=== PATIENT | female | born 1985 | race Caucasian/White ===

== ENCOUNTER 2017-09-16 18:39 | Outpatient (CLI) | payer SELFPAY ==
[2017-09-16 19:07] VITALS: BP 138/75; PULSE 111; RESP 15; TEMP 97.5
--- NOTE | 2017-09-18 20:16 | P.MSEPDOC ---
Presenting Problems - Arrival Data Date of Arrival on Unit: 09/16/17 Time of Arrival on Unit: 18:31 Mode of Transport: Ambulatory - Complaint OB-Reason for Admission/Chief Complaint: Rule Out PROM Comment: Pt complains of possible SROM 2 days ago Medical History - Information : 8 Para: 5 Term: 5 : 1 Abortions: Spontaneous or Elective: 0 Number of Living Children: 5 - Gestational Age Gestational Age by TANNER (wks/days): 37 Weeks and 2 Days Review of Systems - Review of Systems Constitutional: No problems Breast: No problems ENT: No problems Cardiovascular: No problems Respiratory: No problems Gastrointestinal: No problems Genitourinary: No problems Musculoskeletal: No problems Neurological: No problems Skin: No problems Vital Signs - Temperature Temperature: 97.5 F Temperature Source: Temporal Artery Scan - Pulse Pulse Oximetery Pulse Rate: 111 Pulse Assessment Method: Automatic Cuff - Respirations Respiratory Rate: 15 Oxygen Delivery Method: Room Air O2 Sat by Pulse Oximetry: 98 - Blood Pressure Right Arm Blood Pressure: 138/75 Blood Pressure Mean: 96 Blood Pressure Source: Automatic Cuff Medical Screen Scoring (Pre) - Cervical Exam Dilation: 1-3 cm = 1 Membranes: Intact - Uterine Contractions Frequency: N/A Duration: N/A Intensity: N/A - Maternal Vital Signs Maternal Temperature: N/A Maternal Blood Pressure: N/A Signs of Preeclampsia: N/A Maternal Respirations: N/A - Pain Assessment Pain Scale Used: Numeric (1 - 10) Pain Intensity: 0 Pain Management Goal: 0 Pain Description: *Acute Pain Radiation Location: none Pain Frequency: none Pain Duration: 0 Pain Duration Units: Minutes Pain Behavior: None Exhibited Effects of Pain: none Pain Aggravating Factors: None - Maternal Trauma Maternal Trauma: N/A - Assessment Baseline FHR: 125 Heart Rate - NICHD Category: Category I (Normal) = 0 NST: Reactive Position: N/A Station: N/A - Total Score Total Score (Pre): 1 - Level of Risk Level of Risk: Low (0-5) Physician Notification (Pre) - Physician Notified Physician Notified Date: 09/16/17 Physician Notified Time: 19:06 Physician/Practitioner Notifed:: Dr Becerra New Order Received: Yes Disposition - Disposition OB Disposition: Discharge to home Discharge Date: 09/16/17 Discharge Time: 19:10 I agree with the RN Medical Screening Exam: Yes Risk & Benefit of care provided described in d/c instruction: Yes Diagnosis: FALSE LABOR BEFORE 37 COMPLETED WEEKS OF GEST, THIRD TRI
== END 2017-09-16 19:10 | disposition home or self-care (01) ==
LOC: MERGE 18:39 → FBPOP 18:39
PROVIDERS: ATTEND Obstetrics & Gynecology
DX: O47.1 False labor at or after 37 completed weeks of gestation (principal); Z3A.37 37 weeks gestation of pregnancy
CPT/HCPCS: 59025; 84112; 99213

== ENCOUNTER 2017-09-17 21:40 | Inpatient (IN) | payer OTHER ==
[2017-09-17 22:50] LABS: Basophils % (A) 0 %; Eosinophils # (A) 0.1 k/uL (0-0.7); Eosinophils % (A) 1 %; HCT 34.5 % (34.0-46.0); HGB 11.5 gm/dL (11.4-16.0); Lymphocytes # (A) 1.6 k/uL (1.0-4.8); Lymphocytes % (A) 14 %; MCH 29.2 pg (25.0-35.0); MCHC 33.3 g/dL (31.0-37.0); MCV 87.6 fL (80.0-100.0); Mean Platelet Volume 7.5; Monocytes # (A) 0.6 k/uL (0-1.0); Monocytes % (A) 5 %; Neutrophils # (A) 9.4 k/uL (1.3-7.7); Neutrophils % (A) 79 %; Platelet Count 249 k/uL (150-450); Poikilocytosis Slight; RBC 3.94 m/uL (3.80-5.40); RDW 15.5 % (11.5-15.5)
[2017-09-17 22:51] LABS: ALT 21 U/L (9-52); AST 19 U/L (14-36); Blood Urea Nitrogen 6 mg/dL (7-17); LDH 490 U/L (313-618); Uric Acid 3.3 mg/dL (3.7-7.4)
[2017-09-17] MEDS ORDERED: LIDOCAINE 1% (PF) 10 MG/ML (30 ML SDV) SQ PRN (22:54)
[2017-09-17] MEDS ORDERED: OXYTOCIN 10 UNIT/ML 1 ML VIAL IM PRN (22:54)
[2017-09-17] MEDS ORDERED: METHYLERGONOVINE 0.2 MG/ML 1 ML AMP IM PRN (22:54)
[2017-09-17] MEDS ORDERED: TERBUTALINE 1 MG/ML VIAL SQ PRN (22:54)
[2017-09-17] MEDS ORDERED: CARBOPROST TROMETHAMINE 250 MCG/ML 1 ML AMP IM PRN (22:54)
[2017-09-17] MEDS ORDERED: LACTATED RINGERS 1,000 ML IV SCH (23:00)
[2017-09-17] MEDS ORDERED: OXYTOCIN 20 UNITS/1000 ML NS 1,000 ML IV SCH (23:00)
[2017-09-17 23:03] LABS: Appearance,Urine Turbid (Clear); Bacteria,Urine Moderate /hpf; Bilirubin,Urine Negative (Negative); Blood,Urine Large (Negative); Color,Urine Yellow; Glucose,Urine (UA) Negative (Negative); Ketones,Urine Negative (Negative); Leukocyte Esterase,Urine Large (Negative); Nitrite,Urine Negative (Negative); PH, Urine 6.5 (5.0-8.0); Protein,Urine 1+ (Negative); RBC,Urine 25 /hpf (0-5); Specific Gravity,Urine 1.009 (1.001-1.035); Squamous Epithelial Cell,Urine 37 /hpf (0-4); Urobilinogen,Urine <2.0 mg/dL (<2.0); WBC,Urine >182 /hpf (0-5)
[2017-09-17] MEDS ORDERED: CLINDAMYCIN 900 MG in DEXTROSE 5% IN WATER 50 ML IVPB STA ×2 (23:16)
[2017-09-17] MEDS ORDERED: IBUPROFEN 600 MG TAB PO PRN (23:17)
[2017-09-17 23:20] VITALS: BMI 26.8
[2017-09-17 23:27] LABS: INR 0.9 (<1.2); Prothrombin Time 9.4 sec (9.0-12.0)
--- NOTE | 2017-09-18 | P.HPOB ---
History of Present Illness H&P Date: 09/17/17 Chief Complaint: Contractions This is a 32-year-old female 8 para 5 at 37-2/7 weeks, with an estimated date of confinement of 10/05/2017, who presented to labor and delivery with complaints of contractions that became stronger after her appointment in the office today. In addition she complained of a headache that she has had for last 2 hours. She has not taken anything for it. She did state that off and on she has taken either Tylenol or Motrin for pain during the . She most recently took Motrin she thinks yesterday. She states she has probably used it a couple times a month. care has been with Dr. Black and has been uncomplicated per patient. labs: Obstetrical ultrasound-within normal limits Hepatitis B surface antigen-negative RPR-nonreactive Rubella-immune Blood type-O+ Antibody screen-negative HIV-nonreactive Hemoglobin-11.7 Random glucose-76 One hour Glucola-107 Group B streptococcus is pending however she does have a history of positive in previous pregnancies. Obstetrical history: . History of 5 vaginal deliveries. 4 of the deliveries were at term and one delivery at 35 weeks. She has had 1 miscarriage and 1 termination of . Gynecologic history: Denies any history of sexual transmitted diseases. Review of Systems Constitutional: Denies chills, Denies fever Eyes: denies blurred vision, denies pain Ears, nose, mouth and throat: Reports headache Cardiovascular: Denies chest pain, Denies shortness of breath Respiratory: Denies cough Gastrointestinal: Reports abdominal pain (Contractions) Genitourinary: Reports pelvic pain, Reports Musculoskeletal: Reports low back pain Integumentary: Denies pruritus, Denies rash Neurological: Denies numbness, Denies weakness Psychiatric: Reports depression, Reports difficulty concentrating Past Medical History Past Medical History: No Reported History History of Any Multi-Drug Resistant Organisms: None Reported Additional Past Surgical History / Comment(s): Dilation and curretage. Laser surgery for Kidney Stones at age 11 Past Anesthesia/Blood Transfusion Reactions: No Reported Reaction Past Psychological History: Anxiety, Depression Smoking Status: Current every day smoker Past Alcohol Use History: None Reported Past Drug Use History: None Reported - Past Family History Mother Family Medical History: No Reported History Medications and Allergies Home Medications Medication Instructions Recorded Confirmed Type Dextroamphetamine/Amphetamine 10 mg PO DAILY 10/21/15 09/17/17 History [Adderall Xr] RX: Acetaminophen-Codeine 300-30mg 1 - 2 each PO Q4HR PRN #30 tab 10/22/1509/17 Rx [Tylenol w/codeine #3] RX: Ibuprofen [Motrin] 600 mg PO Q6HR PRN #40 tab 10/22/15 09/17/17 Rx Hydrocodone/Acetaminophen [[place] 1 each PO Q6HR PRN #20 tab 10/30/15 09/17/17 Rx 5-325] Allergies Allergy/AdvReac Type Severity Reaction Status Date / Time Penicillins Allergy Intermediate Rash/Hives Verified 09/17/17 21:49 penicillin G Allergy Unknown Verified 09/17/17 21:49 Exam Osteopathic Statement: *. No significant issues noted on an osteopathic structural exam other than those noted in the History and Physical/Consult. - Vital Signs Vital signs: Vital Signs Temp Pulse Resp BP Pulse Ox 09/17/17 23:07 96.3 F L 91 16 152/79 98 09/17/17 22:13 96.3 F L 91 16 152/79 Intake and Output 09/17/17 09/17/17 09/18/17 14:59 22:59 06:59 Other: Weight 75.296 kg 75.296 kg HEENT: Within normal limits Heart: Regular rate and rhythm Lungs: Clear to auscultation bilaterally Abdomen: Cervix: 8 and half to 9 cm/90-100%/-1 station with bulging bag. Artificial rupture of membranes is carried out with clear fluid noted. heart tones: Reactive Contractions: Every 1-2 minutes Extremities: Negative Homans Results Result Diagrams: 09/17/17 22:30 09/17/17 22:30 Abnormal Lab Results - Last 24 Hours (Table) 09/17/17 09/17/17 09/17/17 Range/Units 22:30 22:30 22:30 WBC 12.0 H (3.8-10.6) k/uL Neutrophils # 9.4 H (1.3-7.7) k/uL BUN 6 L (7-17) mg/dL Creatinine 0.50 L (0.52-1.04) mg/dL Uric Acid 3.3 L (3.7-7.4) mg/dL Urine Appearance Turbid H (Clear) Urine Protein 1+ H (Negative) Urine Blood Large H (Negative) Ur Leukocyte Esterase Large H (Negative) Urine RBC 25 H (0-5) /hpf Urine WBC >182 H (0-5) /hpf Urine WBC Clumps Many H (None) /hpf Ur Squamous Epith Cells 37 H (0-4) /hpf Urine Bacteria Moderate H (None) /hpf Assessment and Plan (1) 37 weeks gestation of Current Visit: Yes Status: Acute Code(s): Z3A.37 - 37 WEEKS GESTATION OF SNOMED Code(s): 81209470 Plan: Patient is admitted for active labor. She initially had some elevated blood pressures on arrival to triage and preeclampsia labs were ordered. All labs were negative other than positive protein in her urine however she also had a lot of contamination in her urine. Expectant management.
--- NOTE | 2017-09-18 00:02 | P.PROBDLV ---
Vaginal Delivery Note - . Vaginal Delivery Note: The patient progressed to complete dilation after artificial rupture of membranes with clear fluid noted. She pushed for a short while. Infant's head came to a crown and then delivered across the perineum in a left occiput anterior lie followed by the anterior shoulder. Nose and mouth were bulb suctioned at the perineum. With one further push, the remainder the easily delivered and was placed on mother's abdomen. Brisk cry was noted immediately. Cord was clamped and cut and was taken to warmer for evaluation. A viable female infant was noted with scores of 9 at 1 minute and 9 at 5 minutes and infant weight of 7 lbs. 3 oz. Placenta delivered shortly thereafter, intact, with a three-vessel cord. Uterus contracted fairly well after oxytocin was given and uterine massage was carried out. Inspection the perineum revealed no perineal lacerations. Estimated blood loss is approximately 100 mL's. Both mother and infant are in stable condition. Infant delivery time was 2339.
--- NOTE | 2017-09-18 00:03 | P.MSEPDOC ---
Presenting Problems - Arrival Data Date of Arrival on Unit: 09/17/17 Time of Arrival on Unit: 21:40 Mode of Transport: Ambulatory - Complaint OB-Reason for Admission/Chief Complaint: Possible Onset of Labor Medical History - Information : 8 Para: 5 Term: 5 : 0 Abortions: Spontaneous or Elective: 2 Number of Living Children: 5 - Gestational Age Gestational Age by TANNER (wks/days): 37 Weeks and 3 Days - History Complications: Smoker Review of Systems - Review of Systems Constitutional: No problems Breast: No problems ENT: No problems Cardiovascular: No problems Respiratory: No problems Gastrointestinal: No problems Genitourinary: No problems Musculoskeletal: No problems Neurological: No problems Skin: No problems Vital Signs - Temperature Temperature: 97.6 F Temperature Source: Temporal Artery Scan - Pulse Right Brachial Pulse Rate: 105 Pulse Assessment Method: Automatic Cuff - Respirations Respiratory Rate: 16 Oxygen Delivery Method: Room Air - Blood Pressure Right Arm Blood Pressure: 115/62 Blood Pressure Mean: 79 Blood Pressure Source: Automatic Cuff Medical Screen Scoring (Pre) - Cervical Exam Dilation: 4-7 cm = 2 Effacement: Exam Deferred Membranes: Intact - Uterine Contractions Frequency: > or = 36 weeks =2 Duration: N/A Intensity: N/A - Maternal Vital Signs Maternal Temperature: N/A Maternal Blood Pressure: N/A Signs of Preeclampsia: N/A Maternal Respirations: N/A - Pain Assessment Pain Scale Used: Numeric (1 - 10) Pain Intensity: 7 Pain Description: Cramping Pain Frequency: Intermittent Pain Duration: 1 Pain Duration Units: Minutes Pain Behavior: Facial Grimacing Pain Aggravating Factors: Contractions - Maternal Trauma Maternal Trauma: N/A - Assessment Baseline FHR: 140 Heart Rate - NICHD Category: Category I (Normal) = 0 NST: Reactive Position: N/A Station: N/A - Total Score Total Score (Pre): 4 - Level of Risk Level of Risk: Low (0-5) Physician Notification (Pre) - Physician Notified Physician Notified Date: 09/17/17 Physician Notified Time: 22:13 Physician/Practitioner Notifed:: Dr. Patel Spoke With: Dr. Patel New Order Received: Yes - Notification Comment Comment: Orders recieved to recheck pt after one hour and collect PIH labs and U /A. To call with results Physician Notification (Post) - Physician Notified Physician Notified Date: 09/17/17 Physician Notified Time: 22:58 Physician/Practitioner Notified:: Dr. Patel Spoke With: Dr. Patel - Notification Comment Comment: Dr. Patel notified of pt vag exam. Orders recieved to admit pt Disposition - Disposition OB Disposition: Admit I agree with the RN Medical Screening Exam: Yes Risk & Benefit of care provided described in d/c instruction: Yes Diagnosis: ENCOUNTER FOR FULL-TERM UNCOMPLICATED DELIVERY
[2017-09-18] MEDS ORDERED: diphenhydrAMINE 25 MG CAP PO PRN (01:11)
[2017-09-18] MEDS ORDERED: OXYTOCIN 20 UNITS/1000 ML NS 1,000 ML IV SCH (01:11)
[2017-09-18] MEDS ORDERED: diphenhydrAMINE 50 MG/ML 1 ML VIAL IVP PRN ×2 (01:11)
[2017-09-18] MEDS ORDERED: diphenhydrAMINE 50 MG CAP PO PRN (01:11)
[2017-09-18] MEDS ORDERED: LANOLIN CREAM 5 GM TUBE TOPICAL PRN (01:11)
[2017-09-18] MEDS ORDERED: BENZOCAINE/MENTHOL SPRAY 1 GM/SPRAY AEROSOL TOPICAL PRN (01:11)
[2017-09-18] MEDS ORDERED: HYDROCORTISONE 2.5% RECTAL CREAM 30 GM TUBE RECTAL PRN (01:11)
[2017-09-18] MEDS ORDERED: ZOLPIDEM 5 MG TAB PO PRN (01:11)
[2017-09-18] MEDS ORDERED: ACETAMINOPHEN TAB 325 MG TAB PO PRN (01:11)
[2017-09-18] MEDS ORDERED: WITCH HAZEL 1 EACH MED..PAD TOPICAL PRN (01:11)
[2017-09-18] MEDS ORDERED: SIMETHICONE 80 MG CHEWABLE PO PRN (01:11)
[2017-09-18] MEDS ORDERED: CLINDAMYCIN 900 MG in DEXTROSE 5% IN WATER 50 ML IVPB SCH ×2 (07:16)
[2017-09-18] MEDS: IBUPROFEN 600 MG TAB PO PRN ×2 (08:33→15:46)
--- NOTE | 2017-09-18 09:10 | P.PNOBGVD ---
Subjective - Subjective Principal diagnosis: day 1 Interval history: Doing very well voices no complaints. Patient reports: Reports appetite normal, Reports voiding normally, Reports pain well controlled, Reports ambulating normally [place]: in NICU Objective - Latest Vital Signs Latest vital signs: Vital Signs Temp Pulse Resp BP Pulse Ox 09/18/17 04:06 98.3 F 82 16 128/80 09/18/17 01:50 88 16 125/62 09/18/17 01:20 83 16 120/63 09/18/17 00:50 85 16 136/84 09/18/17 00:35 86 16 130/79 09/18/17 00:20 88 16 119/74 09/18/17 00:05 120 H 16 119/64 09/18/17 00:03 97.6 F 105 H 16 115/62 09/17/17 23:50 97.6 F 105 H 16 115/62 09/17/17 23:07 96.3 F L 91 16 152/79 98 09/17/17 22:13 96.3 F L 91 16 152/79 Intake and Output 09/17/17 09/18/17 09/18/17 22:59 06:59 14:59 Output Total 1 Balance -1 Output: Urine 1 Other: # Voids 1 Weight 75.296 kg 75.296 kg - Exam Lungs: bilateral: normal Chest: Normal S1, Normal S2 Extremities: Present: normal Abdomen: Present: normal appearance, soft Uterus: Present: normal, firm - Labs Labs: Abnormal Lab Results - Last 24 Hours (Table) 09/17/17 09/17/17 09/17/17 Range/Units 22:30 22:30 22:30 WBC 12.0 H (3.8-10.6) k/uL Neutrophils # 9.4 H (1.3-7.7) k/uL BUN 6 L (7-17) mg/dL Creatinine 0.50 L (0.52-1.04) mg/dL Uric Acid 3.3 L (3.7-7.4) mg/dL Urine Appearance Turbid H (Clear) Urine Protein 1+ H (Negative) Urine Blood Large H (Negative) Ur Leukocyte Esterase Large H (Negative) Urine RBC 25 H (0-5) /hpf Urine WBC >182 H (0-5) /hpf Urine WBC Clumps Many H (None) /hpf Ur Squamous Epith Cells 37 H (0-4) /hpf Urine Bacteria Moderate H (None) /hpf
[2017-09-18] MEDS: SENNOSIDES-DOCUSATE SODIUM 1 EACH TAB PO SCH ×2 (15:47→20:09)
[2017-09-19 08:06] LABS: Basophils % (A) 1 %; Eosinophils # (A) 0.1 k/uL (0-0.7); Eosinophils % (A) 2 %; HCT 31.9 % (34.0-46.0); HGB 10.8 gm/dL (11.4-16.0); Lymphocytes # (A) 2.1 k/uL (1.0-4.8); Lymphocytes % (A) 24 %; MCV 88.3 fL (80.0-100.0); Mean Platelet Volume 7.5; Monocytes # (A) 0.5 k/uL (0-1.0); Monocytes % (A) 6 %; Neutrophils # (A) 5.8 k/uL (1.3-7.7); Neutrophils % (A) 67 %; Platelet Count 228 k/uL (150-450); Poikilocytosis Slight; RBC 3.61 m/uL (3.80-5.40); RDW 15.5 % (11.5-15.5); WBC 8.7 k/uL (3.8-10.6)
--- NOTE | 2017-09-19 08:45 | P.PNOBGVD ---
Subjective - Subjective Principal diagnosis: day 2 Interval history: Overall she is doing very well. She voices no complaints. Patient reports: Reports appetite normal, Reports voiding normally, Reports pain well controlled, Reports ambulating normally : in NICU Objective - Latest Vital Signs Latest vital signs: Vital Signs Temp Pulse Resp BP Pulse Ox 09/19/17 00:00 98.1 F 83 16 132/78 09/18/17 16:00 98.4 F 69 18 111/69 98 - Exam Lungs: bilateral: normal Chest: Normal S1, Normal S2 Extremities: Present: normal Abdomen: Present: normal appearance, soft Uterus: Present: normal, firm - Labs Labs: Abnormal Lab Results - Last 24 Hours (Table) 09/19/17 Range/Units 07:27 RBC 3.61 L (3.80-5.40) m/uL Hgb 10.8 L (11.4-16.0) gm/dL Hct 31.9 L (34.0-46.0) %
[2017-09-19] MEDS: IBUPROFEN 600 MG TAB PO PRN ×2 (08:46→19:14)
[2017-09-19] MEDS: SENNOSIDES-DOCUSATE SODIUM 1 EACH TAB PO SCH ×2 (15:33→19:36)
[2017-09-20 00:06] VITALS: PULSE 77; RESP 16
[2017-09-20] MEDS: IBUPROFEN 600 MG TAB PO PRN (07:55)
[2017-09-20] MEDS: SENNOSIDES-DOCUSATE SODIUM 1 EACH TAB PO SCH (07:56)
[2017-09-20 07:59] VITALS: BP 139/81; TEMP 98.3
--- NOTE | 2017-09-20 08:46 | P.DS ---
Providers Date of admission: 09/17/17 23:05 Expected date of discharge: 09/20/17 Attending physician: Jasvir Black Primary care physician: Jasvir Black Hospital Course: Randee is doing very well day 3. She is involuting, voiding and tolerating her diet. She voices no complaints and is stable for discharge this time. Prescription for Motrin has been provided she will follow up with me in 6 weeks. Discharge instructions were thoroughly reviewed and all questions are answered for her at this time. Physical exam reveals no abnormalities heart regular lungs clear abdomen abdomen is soft and nontender. Uterus is firm below the umbilicus. Lochia is reported to be light. Assessment day 3. Plan discharged home follow up with me in 6 weeks Patient Condition at Discharge: Good Plan - Discharge Summary New Discharge Prescriptions: New Ibuprofen [Motrin] 600 mg PO Q6HR PRN #30 tab PRN Reason: Pain No Action Dextroamphetamine/Amphetamine [Adderall Xr] 10 mg PO DAILY Acetaminophen-Codeine 300-30mg [Tylenol w/codeine #3] 1 - 2 each PO Q4HR PRN #30 tab PRN Reason: Mild Pain Ibuprofen [Motrin] 600 mg PO Q6HR PRN #40 tab PRN Reason: Mild Pain Or Fever >= 100.5 Hydrocodone/Acetaminophen [Sims 5-325] 1 each PO Q6HR PRN #20 tab PRN Reason: Pain Discharge Medication List Dextroamphetamine/Amphetamine [Adderall Xr] 10 mg PO DAILY 10/21/15 [History] Acetaminophen-Codeine 300-30mg [Tylenol w/codeine #3] 1 - 2 each PO Q4HR PRN # 30 tab 10/22/15 [Rx] Ibuprofen [Motrin] 600 mg PO Q6HR PRN #40 tab 10/22/15 [Rx] Hydrocodone/Acetaminophen [Sims 5-325] 1 each PO Q6HR PRN #20 tab 10/30/15 [Rx] Ibuprofen [Motrin] 600 mg PO Q6HR PRN #30 tab 09/19/17 [Rx] Follow up Appointment(s)/Referral(s): Jasvir Black DO [Primary Care Provider] - 6 Weeks Activity/Diet/Wound Care/Special Instructions: Ting, limit stairs and driving, and pelvic rest. If any high temperatures, heavy bleeding, or severe pain call my office Discharge Disposition: HOME SELF-CARE
== END 2017-09-20 12:30 | disposition home or self-care (01) | DRG 775 ==
LOC: FBPOP 21:40 → 4FBP 23:05
PROVIDERS: ADMIT Obstetrics & Gynecology; ATTEND Obstetrics & Gynecology
PROC: 10E0XZZ Delivery of Products of Conception, External Approach (ICD-10-PCS; principal; 2017-09-17)
PROC: 10907ZC Drainage of Amniotic Fluid, Therapeutic from Products of Conception, Via Natural or Artificial Opening (ICD-10-PCS; principal; 2017-09-17)
DX: O99.334 Smoking (tobacco) complicating childbirth (principal); Z37.0 Single live birth; Z3A.37 37 weeks gestation of pregnancy; F17.200 Nicotine dependence, unspecified, uncomplicated; Z88.0 Allergy status to penicillin; O99.344 Other mental disorders complicating childbirth; F32.9 Major depressive disorder, single episode, unspecified; F41.9 Anxiety disorder, unspecified; Z87.442 Personal history of urinary calculi; Z79.891 Long term (current) use of opiate analgesic
CPT/HCPCS: 59025; 81001; 82565; 83615; 84450; 84460; 84520; 84550; 85025; 85384; 85610; 85730; 88307; 99213

== ENCOUNTER 2019-11-04 16:39 | Inpatient (IN) | payer OTHER ==
[2019-11-04] MEDS ORDERED: MAGNESIUM SULFATE-WATER PMX 4 GM in WATER FOR INJECTION 1 100ML.BAG IVPB ONE (17:18)
[2019-11-04] MEDS ORDERED: hydrALAZINE HCL 20 MG/ML 1 ML VIAL IVP PRN (17:18)
[2019-11-04] MEDS ORDERED: LABETALOL 5 MG/ML VIAL MDV IVP PRN ×3 (17:18)
[2019-11-04] MEDS ORDERED: CALCIUM GLUCONATE 1 GM/10 ML VIAL IV PRN (17:18)
[2019-11-04] MEDS ORDERED: OXYTOCIN 10 UNIT/ML 1 ML VIAL IM PRN (17:20)
[2019-11-04] MEDS ORDERED: LIDOCAINE 0.5% (PF) 5 MG/ML (50 ML SDV) SQ PRN (17:20)
[2019-11-04] MEDS ORDERED: TERBUTALINE 1 MG/ML VIAL SQ PRN (17:20)
[2019-11-04] MEDS ORDERED: CARBOPROST TROMETHAMINE 250 MCG/ML 1 ML AMP IM PRN (17:20)
[2019-11-04] MEDS ORDERED: METHYLERGONOVINE 0.2 MG/ML 1 ML AMP IM PRN (17:20)
--- NOTE | 2019-11-04 17:28 | P.HPOB ---
History of Present Illness H&P Date: 11/04/19 Chief Complaint: Intrauterine at 36 weeks 6 days with preeclampsia Randee is a 34-year-old at 36 6 weeks gestation who was seen in the office this afternoon and was sent over for nonstress test and further monitoring. In the office she complained of swelling in her feet which was 2+ she also relates that last couple days she felt like her hands are swollen and her mom had thought that her lips were swollen but did not appear to be swollen today. 10 reflexes were 1+. In the office she denied headache or other symptoms but once she gets labor and delivery she relates that she's had significant headaches on and off for approximately 1 week with epigastric pain which she didn't understand what I meant in the office when asked her about. Her blood pressures in the office was 120s over 60s and upon arriving in labor and delivery immediately her blood pressure was noted to be 170/98 and then 180s over 105's. We are giving her blood pressure medications to try and get that under control and will start mag sulfate for suspected preeclampsia. She does have 1+ protein in her urine dip in the office and preeclamptic labs are ordered. She currently is dilated to approximately 2-3 cm and 60-70% effaced. We'll try and get her in labor and deliver vaginally if at all possible since she has 6 prior vaginal deliveries. It is noted that she is technically , but she does have what appears to be severe preeclampsia based on blood pressure as well as severe features with headache and possible epigastric pain. She relates that her epigastric pain wasn't worrying to her as she relates it was at with all of her other pregnancies difficult for me to say for certainty without liver enzymes whether or not this is true epigastric pain. Her course up until today had been generally unremarkable there was a significant gap in her care from 13 weeks to 28 weeks but I see her much more regularly since that time. She did not do her Glucola screen. She has been having some irregular contractions at home. Initially heart tones were in the 200s, but have come down with her just resting and showed category 1 tracing with a baseline heart rate in the 160s. She has no significant history otherwise preeclampsia but with advanced maternal age this does put her at some increased risk. All laboratories are pending it is possible that she will not show any labs consistent with preeclampsia I am still planning on delivering her without significant for blood pressure range. If we can get her blood pressure under control plan vaginal delivery she is aware that if things were to progress or change she may need a section. Pertinent labs with the Precis did include O+ blood type Rh antibody was negative, rubella was immune, RPR and hepatitis she surface antigen were both negative. All questions are answered for her at this time. She is aware of the gravity in severity potential the current diagnosis. She is aware of potential risk for seizures. Past Medical History Past Medical History: No Reported History Additional Past Medical History / Comment(s): times 3 (term); SAB times 1; EAB times one. Patient states she takes Tramdol for back pain. History of Any Multi-Drug Resistant Organisms: None Reported Additional Past Surgical History / Comment(s): Dilation and curretage. Laser surgery for Kidney Stones at age 11 Past Anesthesia/Blood Transfusion Reactions: No Reported Reaction Smoking Status: Current some day smoker - Past Family History Mother Family Medical History: No Reported History Medications and Allergies Home Medications Medication Instructions Recorded Confirmed Type No Known Home Medications 11/13/17 11/13/17 History Allergies Allergy/AdvReac Type Severity Reaction Status Date / Time Penicillins Allergy Intermediate Rash/Hives Verified 11/04/19 17:03 penicillin G Allergy Unknown Verified 11/04/19 17:03 sulfamethoxazole Allergy Rash/Hives Verified 11/04/19 17:03 [From Bactrim] trimethoprim [From Bactrim] Allergy Rash/Hives Verified 11/04/19 17:03 Exam Osteopathic Statement: *. No significant issues noted on an osteopathic structural exam other than those noted in the History and Physical/Consult. Intake and Output 11/04/19 11/04/19 11/04/19 06:59 14:59 22:59 Other: Weight 84.368 kg - OBG Physical Exam Breast: both: normal (no masses) Abdomen: bowel sounds normal, no diffuse tenderness, no bruit present, no guarding noted, no hepatomegaly, no splenomegaly, no mass Vulva: both: normal Vagina: normal moisture, no discharge Cervix: no lesion, no discharge Uterus: normal size, normal contour Adnexa: both: normal Anus/Rectum: normal perianal skin, no rectal mass, no hemorrhoids, heme negative
[2019-11-04 17:29] LABS: Appearance,Urine Clear (Clear); Bilirubin,Urine Negative (Negative); Blood,Urine Negative (Negative); Calcium Oxalate Crystals,Urine Many /hpf; Color,Urine Yellow; Glucose,Urine (UA) Negative (Negative); Hyaline Casts,Urine 4 /lpf (0-2); Ketones,Urine Negative (Negative); Leukocyte Esterase,Urine Negative (Negative); Mucus,Urine Few /hpf; Nitrite,Urine Negative (Negative); Protein,Urine 2+ (Negative); RBC,Urine 2 /hpf (0-5); Specific Gravity,Urine 1.019 (1.001-1.035); Squamous Epithelial Cell,Urine 1 /hpf (0-4); Urobilinogen,Urine <2.0 mg/dL (<2.0); WBC,Urine 4 /hpf (0-5)
[2019-11-04] MEDS: LACTATED RINGERS 1,000 ML IV SCH ×2 (17:38→19:29)
[2019-11-04 17:45] LABS: Basophils % (A) 0 %; Eosinophils # (A) 0.2 k/uL (0-0.7); Eosinophils % (A) 2 %; HCT 34.9 % (34.0-46.0); HGB 11.3 gm/dL (11.4-16.0); Lymphocytes # (A) 1.3 k/uL (1.0-4.8); Lymphocytes % (A) 14 %; MCH 28.8 pg (25.0-35.0); MCHC 32.2 g/dL (31.0-37.0); MCV 89.6 fL (80.0-100.0); Mean Platelet Volume 9.1; Monocytes # (A) 0.6 k/uL (0-1.0); Monocytes % (A) 6 %; Neutrophils # (A) 7.2 k/uL (1.3-7.7); Neutrophils % (A) 76 %; Platelet Count 216 k/uL (150-450); Poikilocytosis Slight; RDW 14.8 % (11.5-15.5); WBC 9.5 k/uL (3.8-10.6)
[2019-11-04 17:51] LABS: ALT 8 U/L (4-34); AST 20 U/L (14-36); African American GFR (CKD) >90 (>60 ml/min/1.73 sqM); Blood Urea Nitrogen 9 mg/dL (7-17); LDH 480 U/L (313-618); Magnesium 1.7 mg/dL (1.6-2.3); Non-African American GFR(CKD) >90 (>60 ml/min/1.73 sqM); Uric Acid 4.9 mg/dL (3.7-7.4)
[2019-11-04 17:55] LABS: INR 0.9 (<1.2); Partial Thromboplastin Time 22.7 sec (22.0-30.0); Prothrombin Time 9.3 sec (9.0-12.0)
[2019-11-04 17:57] LABS: Protein/Creatinine Ratio,Urine 1.2
[2019-11-04] MEDS ORDERED: CLINDAMYCIN 600 MG in DEXTROSE 5% IN WATER 50 ML IVPB SCH ×2 (18:00)
[2019-11-04] MEDS: MAGNESIUM SULFATE-WATER PMX 20 GM in WATER FOR INJECTION 1 500ML.BAG IV SCH (18:05)
[2019-11-04] MEDS ORDERED: SODIUM CHLORIDE 0.9% 100 ML BAG ONE (18:52)
[2019-11-04] MEDS ORDERED: ROPIVACAINE 5MG/ML 20ML VIAL ONE (18:52)
[2019-11-04] MEDS ORDERED: fentaNYL (PF) 50 MCG/ML 5 ML AMP ONE (18:52)
[2019-11-04] MEDS: OXYTOCIN 30 UNITS/500 ML NS 30 UNIT in SALINE 1 500ML.BAG IV SCH (19:50)
[2019-11-04] MEDS ORDERED: WITCH HAZEL 1 EACH MED..PAD TOPICAL PRN (21:47)
[2019-11-04] MEDS ORDERED: BENZOCAINE/MENTHOL SPRAY 1 GM/SPRAY AEROSOL TOPICAL PRN (21:47)
[2019-11-04] MEDS ORDERED: diphenhydrAMINE 25 MG CAP PO PRN (21:47)
[2019-11-04] MEDS ORDERED: LANOLIN CREAM 5 GM TUBE TOPICAL PRN (21:47)
[2019-11-04] MEDS ORDERED: ZOLPIDEM 5 MG TAB PO PRN (21:47)
[2019-11-04] MEDS ORDERED: SIMETHICONE 80 MG CHEWABLE PO PRN (21:47)
[2019-11-04] MEDS ORDERED: HYDROCORTISONE 2.5% RECTAL CREAM 30 GM TUBE RECTAL PRN (21:47)
[2019-11-04] MEDS ORDERED: diphenhydrAMINE 50 MG CAP PO PRN (21:47)
[2019-11-04] MEDS ORDERED: diphenhydrAMINE 50 MG/ML 1 ML VIAL IVP PRN ×2 (21:47)
--- NOTE | 2019-11-04 21:49 | P.PROBDLV ---
Vaginal Delivery Note - . Vaginal Delivery Note: Randee progressed complete and pushed with spontaneous vaginal delivery of a viable male over an intact perineum. Baby was delivered from straight occiput posterior position. Once baby's head was delivered nuchal cord 1 was easily reduced and using lateral traction baby's shoulder easily delivered. Once baby was delivered mouth nares were bulb suctioned and baby was placed mother's abdomen where the umbilical cord was allowed to pulsate for 45 seconds prior to clamping and cutting. Once this completed nursery personnel was present and assumed care. Placenta was then delivered intact Pitocin was added to the IV. scores were 8 and 9 at one and 5 minutes respectively. Weight is pending but both mother and baby currently appear stable following delivery. We'll plan to continue mag sulfate for 24 hours and add oral labetalol with IV labetalol only as needed for urgent hypertensive crisis
[2019-11-04] MEDS ORDERED: OXYTOCIN 20 UNITS/1000 ML NS 1,000 ML IV SCH (22:00)
[2019-11-04] MEDS: IBUPROFEN 600 MG TAB PO PRN (22:32)
[2019-11-04] MEDS: LABETALOL 200 MG TAB PO SCH (22:33)
[2019-11-05 00:30] LABS: Urine Alcohol Negative (Negative); Urine Barbiturate Negative (Negative); Urine Cocaine Negative (Negative); Urine Methadone Negative (Negative); Urine Opiates Negative (Negative); Urine Phencyclidine Negative (Negative)
[2019-11-05] MEDS: MAGNESIUM SULFATE-WATER PMX 20 GM in WATER FOR INJECTION 1 500ML.BAG IV SCH ×2 (03:44→15:59)
[2019-11-05] MEDS: ACETAMINOPHEN TAB 325 MG TAB PO PRN (03:47)
[2019-11-05 06:04] LABS: Basophils % (A) 0 %; Eosinophils # (A) 0.1 k/uL (0-0.7); Eosinophils % (A) 1 %; HCT 30.2 % (34.0-46.0); HGB 10.3 gm/dL (11.4-16.0); Lymphocytes # (A) 1.4 k/uL (1.0-4.8); Lymphocytes % (A) 12 %; MCH 30.7 pg (25.0-35.0); MCV 90.5 fL (80.0-100.0); Mean Platelet Volume 8.9; Monocytes # (A) 0.5 k/uL (0-1.0); Monocytes % (A) 5 %; Neutrophils # (A) 9.5 k/uL (1.3-7.7); Neutrophils % (A) 81 %; Platelet Count 198 k/uL (150-450); RBC 3.34 m/uL (3.80-5.40); RDW 14.9 % (11.5-15.5); WBC 11.7 k/uL (3.8-10.6)
[2019-11-05] MEDS: LABETALOL 200 MG TAB PO SCH ×2 (08:47→20:36)
[2019-11-05] MEDS: IBUPROFEN 600 MG TAB PO PRN ×2 (08:51→20:38)
--- NOTE | 2019-11-05 15:18 | PN ---
PROGRESS NOTE PRINCIPAL DIAGNOSIS: day 1 with preeclampsia. Randee was seen and evaluated this morning post day 1. Overall, she is doing well. She is diuresing well. Her 2+ pitting edema in her lower extremities is basically gone now. She does have maybe a slight trace of peripheral edema. Her hands and face look less swollen as well. She has been on Mag sulfate 2 g an hour since last night. She is feeling a little lightheaded and fuzzy. As she seems to be improving, will decrease that to 1 g an hour and decrease her IV rate to 25 mL an hour so that she can start drinking some fluids judiciously. Will also try and allow her to have some diet this morning. Her blood pressure this morning is 150/100. She did receive a dose of labetalol. She is on labetalol twice daily and I will speak with Dr. Becerra who is on-call today and if adjustments need to be made, they can be made. But she denies headache, no epigastric pain or other signs or symptoms of preeclampsia at this time. Otherwise, her heart is regular, lungs are clear, extremities without pain. Abdomen is soft, uterus is firm and lochia is reported to be light. We will make these small changes and try and decrease her Mag sulfate and discontinue it at 24 hours. MMODL / IJN: [id number] /
[2019-11-05] MEDS: LACTATED RINGERS 1,000 ML IV SCH (16:01)
[2019-11-05] MEDS: SENNOSIDES-DOCUSATE SODIUM 1 EACH TAB PO SCH (20:35)
[2019-11-06] MEDS: SENNOSIDES-DOCUSATE SODIUM 1 EACH TAB PO SCH ×3 (00:22→21:47)
[2019-11-06] MEDS: IBUPROFEN 600 MG TAB PO PRN ×3 (04:58→20:50)
[2019-11-06] MEDS: LABETALOL 200 MG TAB PO SCH (09:17)
--- NOTE | 2019-11-06 09:47 | P.PNOBGVD ---
Subjective - Subjective Principal diagnosis: day 2 Interval history: Overall Randee is doing well. Her blood pressure still are somewhat labile but not of blood pressures have been extremely high other than at 40 and this morning when it was 162/90. Later this morning is 138/70. The plan is to continue monitoring her through the day of her blood pressures remained stable then will plan discharge her to home on the labetalol. If she continues to have significantly labile blood pressures we'll need to keep her overnight and adjust her medication. All questions are answered for her at this time. We'll plan to continue current care for now. Vital signs otherwise are stable. Heart regular, lungs clear, extremities without pain. Abdomen is soft uterus firm and lochia is reported light. Assessment day 2. Plan continue care for now Objective - Latest Vital Signs Latest vital signs: Vital Signs Temp Pulse Resp BP Pulse Ox 11/06/19 08:00 98.5 F 91 18 139/79 100 11/06/19 04:00 98.4 F 79 16 162/96 11/06/19 00:00 97.4 F L 89 16 158/80 96 11/05/19 22:37 159/88 11/05/19 20:00 98.3 F 94 18 133/76 99 11/05/19 18:00 88 18 154/90 99 11/05/19 17:00 18 138/68 11/05/19 16:00 97.7 F 90 17 147/80 99 11/05/19 15:00 97 17 168/91 99 11/05/19 14:00 17 138/82 99 11/05/19 13:00 99 16 150/81 99 Intake and Output 11/05/19 11/06/19 11/06/19 22:59 06:59 14:59 Intake Total 425 900 Output Total 600 1300 500 Balance -175 -400 -500 Intake: Intake, IV Titration 125 Amount Lactated Ringers 1,000 ml 75 @ 25 mls/hr IV .Q24H [facility] Rx#:[id number] Magnesium Sulfate-Water 50 Pmx 4 gm In Water For Injection 1 100ml.bag @ 300 mls/hr IVPB ONCE ONE Rx#:[id number] Oral 300 900 Output: Urine 600 1300 500 Other: # Voids 1 Weight 79.9 kg
[2019-11-06] MEDS: ACETAMINOPHEN TAB 325 MG TAB PO PRN (16:46)
--- NOTE | 2019-11-06 16:58 | P.PN ---
Progress Note - Text Progress Note Date: 11/06/19 Crystal seen and evaluated again this afternoon. Her last blood pressures 175/99. Discharge was canceled and will increase her labetalol to 300 mg twice daily. She is continued to diurese well and lost 10 pounds from yesterday into today. She voices no complaints other than minimal headache no epigastric pain or other visual changes taken reflexes are normal. If blood pressures continue to be elevated we'll plan medical consultation in the morning as she may require to high. 2 all questions are answered for her at this time. Overall she is stable resting comfortably in bed and caring for her baby. Hypertensive's to control her blood pressures
[2019-11-06] MEDS ORDERED: LABETALOL 100 MG TAB PO STA (17:13)
[2019-11-06] MEDS ORDERED: NIFEdipine 10 MG CAP PO STA (18:00)
[2019-11-06] MEDS ORDERED: NIFEdipine 10 MG CAP PO PRN (18:34)
--- NOTE | 2019-11-06 20:06 | P.CONS ---
History of Present Illness - Reason for Consult Consult date: 11/06/19 severe preeclampsia Requesting physician: Jasvir Black - Chief Complaint Headache - History of Present Illness Patient is a 34-year-old female with recently diagnosed preeclampsia underwent vaginal delivery on 11/03. She has no other past medical history. Prior to delivery patient was at 35 and 6 ) had been rather uneventful. However she presented to Dr. Castillo's office on 11/03 with headaches over the last week and worsening swelling in her hands and her feet. In the office she was sent over for a nonstress test. On arrival to labor and delivery unit her blood pressure was 170/9 D8 and then 180/105. She was noted to have 1+ protein in her urine dip in office. She was initially started on a magnesium drip and labetalol. We were called to consult on the patient today as her blood pressure has been Bowel but again spiked at 1500 today despite aggressive labetalol. Will be below 100 mg was ordered stat by [facility] and we're asked to consult. Patient seen and examined at bedside with nursing present. She reports that she is currently having a headache. It starts in her neck and wraps around the back of her head. She states that she initially was having this around 4:00 into the Tylenol that did not seem to help with headache. She had her dose labetalol and initially the headache eased somewhat but it is coming back. She denies any changes in her vision, or unusual numbness, tingling, or weakness. She is not having any chest pain or increasing shortness of wraps. She feels as though her lower extremity edema is improved since delivery and her hands are much improved. She has been 8 other times, with 6 91 complicated by high blood pressure. She states that she feels her dad has a history of chronic hypertension. She has no history of chronic heart disease. Review of Systems Pertinent positives and negatives as discussed in HPI, a complete review of s ystems was performed and all other systems are negative. Past Medical History Past Medical History: No Reported History Additional Past Medical History / Comment(s): times 5 (term); 1 @ 36 week, SAB times 1; EAB times one. Patient states she takes Tramdol for back pain. History of Any Multi-Drug Resistant Organisms: None Reported Additional Past Surgical History / Comment(s): Dilation and curretage. Laser surgery for Kidney Stones at age 11 Past Anesthesia/Blood Transfusion Reactions: No Reported Reaction Past Psychological History: ADD/ADHD, Anxiety, Depression Smoking Status: Current some day smoker Past Alcohol Use History: None Reported Additional Past Alcohol Use History / Comment(s): has smoked for about 13 years 1 ppd Past Drug Use History: None Reported - Past Family History Mother Family Medical History: COPD, Coronary Artery Disease (CAD) Additional Family Medical History / Comment(s): AL x 2 Father Family Medical History: Hypertension Medications and Allergies Home Medications Medication Instructions Recorded Confirmed Type No Known Home Medications 11/13/17 11/04/19 History Allergies Allergy/AdvReac Type Severity Reaction Status Date / Time Penicillins Allergy Intermediate Rash/Hives Verified 11/04/19 17:03 penicillin G Allergy Unknown Verified 11/04/19 17:03 sulfamethoxazole Allergy Rash/Hives Verified 11/04/19 17:03 [From Bactrim] trimethoprim [From Bactrim] Allergy Rash/Hives Verified 11/04/19 17:03 Physical Exam Osteopathic Statement: *. No significant issues noted on an osteopathic structural exam other than those noted in the History and Physical/Consult. Vitals: Vital Signs Temp Pulse Resp BP Pulse Ox 11/06/19 17:15 167/96 11/06/19 16:00 98.6 F 78 16 175/99 11/06/19 12:00 98.2 F 87 16 154/92 99 11/06/19 08:00 98.5 F 91 18 139/79 100 11/06/19 04:00 98.4 F 79 16 162/96 11/06/19 00:00 97.4 F L 89 16 158/80 96 11/05/19 22:37 159/88 11/05/19 20:00 98.3 F 94 18 133/76 99 Intake and Output 11/06/19 11/06/19 11/06/19 06:59 14:59 22:59 Intake Total 900 Output Total 1300 1000 Balance -400 -1000 Intake: Oral 900 Output: Urine 1300 1000 Other: # Voids 1 Weight 79.9 kg General: non toxic, no distress, appears at stated age, normal weight Derm: Multiple tattoos, no unusual rashes/lesions no unusual ecchymoses, warm, dry Head: atraumatic, normocephalic, symmetric Eyes: EOMI, no lid lag, anicteric sclera, pupils equal round reactive to light ENT: Nose and ears atraumatic, no thrush, no pharyngeal erythema Neck: No thyromegaly, no cervical lymphadenopathy, trachea midline, supple Mouth: no lip lesion, mucus membranes moist Cardiovascular: S1S2 reg, no murmur, positive posterior tibial pulse bilateral, 2+ edema bilateral lower extremities, moderate edema bilateral hand, capillary refill less than 2 seconds Lungs: Coarse breath sounds bilateral , no accessory muscle use Abdominal: soft, mildly tender to palpation diffusely, no guarding, no appreciable organomegaly, normal bowel sounds Ext: no gross muscle atrophy, muscle strength 5 out of 5 in all 4 extremities grossly, no contractures, Neuro: CN II-XI grossly intact, light touch intact all 4 extremities, finger to nose within normal limits, Psych: Alert, oriented, appropriate affect Results CBC & Chem 7: 11/05/19 05:22 11/04/19 17:29 Assessment and Plan Assessment: Preeclampsia with possible severe features as suggested by headache - has been on labetalol and given an additional 100mg approx 40 minutes before my arrival - BP on my arrival 177/105 in room, nifedipide 10 mg PO X 1 ordered SBP 20 minus later was 146 - prn nifedipine was ordered or q2 hours with a call to physician if given for further directions - Labetalol had been increased to 300 BID by OB - will monitor BP overnight if additional doses of nifedipine needed will start patient on nifedipine xL - Patient instructed to alert nurse immediately if VALLE worsens, visual disturbance, new weakness, new numbness - Avoid additional IVF, Could also consider a dose of HCTZ for + fluid balance as patient is not breast feeding - will need close outpatient follow-up for BP after discharge, if elevated BP beyond 3 months may have chronic HTN Anemia of - anticipated monitor Thank you for allowing us to participate in the care of this pleasant patient. Do not hesitate to contact us with questions. Someone can be reached from the [facility] hospitalist group all hours of the day at [phone] or via perfect serve.
[2019-11-06] MEDS ORDERED: LABETALOL 100 MG TAB PO SCH (21:00)
[2019-11-06] MEDS ORDERED: LABETALOL 200 MG TAB PO ONE (21:00)
[2019-11-06] MEDS: LACTATED RINGERS 1,000 ML IV SCH (21:49)
[2019-11-06] MEDS: OXYTOCIN 30 UNITS/500 ML NS 30 UNIT in SALINE 1 500ML.BAG IV SCH (21:50)
[2019-11-07] MEDS: IBUPROFEN 600 MG TAB PO PRN (05:10)
[2019-11-07 05:32] LABS: HCT 29.6 % (34.0-46.0); HGB 9.4 gm/dL (11.4-16.0); Hypochromasia Slight; MCH 28.9 pg (25.0-35.0); MCHC 31.7 g/dL (31.0-37.0); MCV 91.1 fL (80.0-100.0); Mean Platelet Volume 8.1; Platelet Count 248 k/uL (150-450); RBC 3.25 m/uL (3.80-5.40); RDW 15.2 % (11.5-15.5); WBC 6.8 k/uL (3.8-10.6)
[2019-11-07 05:53] LABS: ALT 10 U/L (4-34); AST 26 U/L (14-36); African American GFR (CKD) >90 (>60 ml/min/1.73 sqM); Albumin 2.7 g/dL (3.5-5.0); Alkaline Phosphatase 117 U/L (38-126); Anion Gap 5 mmol/L; Blood Urea Nitrogen 13 mg/dL (7-17); Calcium 8.3 mg/dL (8.4-10.2); Carbon Dioxide 21 mmol/L (22-30); Chloride 108 mmol/L (98-107); Glucose 70 mg/dL (74-99); Non-African American GFR(CKD) >90 (>60 ml/min/1.73 sqM); Potassium 4.4 mmol/L (3.5-5.1); Sodium 134 mmol/L (137-145); Total Bilirubin 0.3 mg/dL (0.2-1.3); Total Protein 5.3 g/dL (6.3-8.2)
--- NOTE | 2019-11-07 08:43 | P.PNOBGVD ---
Subjective - Subjective Principal diagnosis: day 4 Interval history: Randee seen and evaluated. Her blood pressure still her somewhat labile. It is improved with addition of nifedipine. We'll allow medicine to see her again today and make decisions on whether she needs to be on multiple medications once she is at home. Blood pressure this morning was significant improved 134/80 and she has no signs or symptoms of severe features. All questions are answered for her at this time and we are going to await medicines reevaluation and recommendations prior to discharge. Patient reports: Reports appetite normal, Reports voiding normally, Reports pain well controlled, Reports ambulating normally [place]: doing well Objective - Latest Vital Signs Latest vital signs: Vital Signs Temp Pulse Resp BP Pulse Ox 11/07/19 08:00 98.4 F 77 16 134/80 99 11/07/19 04:00 76 15 165/97 11/07/19 00:00 98 F 87 15 151/90 98 11/06/19 20:48 98.1 F 88 18 144/91 99 11/06/19 20:00 98 F 97 15 130/74 98 11/06/19 17:15 167/96 11/06/19 16:00 98.6 F 78 16 175/99 11/06/19 12:00 98.2 F 87 16 154/92 99 Intake and Output 11/06/19 11/07/19 11/07/19 22:59 06:59 14:59 Other: Weight 76.294 kg - Labs Labs: Abnormal Lab Results - Last 24 Hours (Table) 11/07/19 11/07/19 Range/Units 05:02 05:02 RBC 3.25 L (3.80-5.40) m/uL Hgb 9.4 L (11.4-16.0) gm/dL Hct 29.6 L (34.0-46.0) % Sodium 134 L (137-145) mmol/L Chloride 108 H (98-107) mmol/L Carbon Dioxide 21 L (22-30) mmol/L Glucose 70 L (74-99) mg/dL Calcium 8.3 L (8.4-10.2) mg/dL Total Protein 5.3 L (6.3-8.2) g/dL Albumin 2.7 L (3.5-5.0) g/dL
[2019-11-07 08:58] VITALS: RESP 16
[2019-11-07] MEDS ORDERED: LABETALOL 100 MG TAB PO SCH (09:00)
[2019-11-07] MEDS ORDERED: NIFEdipine XL 30 MG TAB.ER.24 PO SCH (09:00)
[2019-11-07 15:52] VITALS: PULSE 72; TEMP 98
--- NOTE | 2019-11-07 16:44 | P.DS ---
Providers Date of admission: 11/04/19 17:23 Expected date of discharge: 11/07/19 Attending physician: Jasvir Black Consults: 11/06/19 17:25 Consult Physician Urgent Consulting Provider: Sherley Avila Consult Reason/Comments: hypertension Do you want consulting provider notified?: Already Contacted Primary care physician: Jasvir Black [facility] Course: Randee is seen and evaluated again today day 4. Her blood pressures remained somewhat elevated despite medication. She is not having any signs or symptoms of preeclampsia she denies headache, epigastric pain or visual changes she also has normal deep tendon reflexes then scant to no peripheral edema. We did review in great detail signs and symptoms of preeclampsia and what to do and where to go i.e. the emergency room should any of these develop. She is aware to follow up with me in my office on Sunday or Sunday for blood pressure evaluations we can reevaluate how she is doing on her blood pressure medications. Prescription for Motrin was for her to the pharmacy for pain. Her vital signs otherwise are stable. Her heart is regular, lungs are clear and extremities are without pain was scant peripheral edema and normal deep tendon reflexes. Abdomen soft uterus is firm and lochia is reported light. Assessment day 4. Plan discharged home follow up on Sunday or Sunday for blood pressure check. Discharge was okayed by internal medicine. Patient Condition at Discharge: Stable Plan - Discharge Summary New Discharge Prescriptions: New NIFEdipine XL [Procardia XL] 30 mg PO DAILY #15 tab.er.24 Labetalol HCl [Trandate] 300 mg PO BID #30 tablet Ibuprofen [Motrin] 600 mg PO Q6HR PRN #30 tab PRN Reason: Pain Discharge Medication List Ibuprofen [Motrin] 600 mg PO Q6HR PRN #30 tab 11/07/19 [Rx] Labetalol HCl [Trandate] 300 mg PO BID #30 tablet 11/07/19 [Rx] NIFEdipine XL [Procardia XL] 30 mg PO DAILY #15 tab.er.24 11/07/19 [Rx] Follow up Appointment(s)/Referral(s): Jasvir Black DO [Primary Care Provider] - 3 Days Activity/Diet/Wound Care/Special Instructions: No heavy lifting, limit stairs and driving, and pelvic rest. If any high temperatures, heavy bleeding or severe pain notify our office. Discharge instructions include thorough review of preeclamptic symptoms and after ports emergency room for any severe headache, visual changes, epigastric pain or any other findings that may be consistent with her blood pressure going up. She is aware she should not be taking any amphetamines during this time as this could significantly impact her in a very negative way could potentially cause her to stroke or . Return to the office on Sunday or Sunday for blood pressure check Discharge Disposition: HOME SELF-CARE
[2019-11-07 17:32] VITALS: BP 156/90
--- NOTE | 2019-11-07 17:32 | P.PN ---
Subjective Progress Note Date: 11/07/19 Principal diagnosis: Preeclampsia Patient is a 34-year-old female with recently diagnosed preeclampsia underwent vaginal delivery on 11/03. She has no other past medical history. Prior to delivery patient was at 35 and 6 ) had been rather uneventful. However she presented to Dr. Black's office on 11/03 with headaches over the last week and worsening swelling in her hands and her feet. In the office she was sent over for a nonstress test. On arrival to labor and delivery unit her blood pressure was 170/98 and then 180/105. She was noted to have 1+ protein in her urine dip in office. She was initially started on a magnesium drip and labetalol. We were called to consult on the patient today as her blood pressure has been BP again spiked at 1500 11/06 despite aggressive labetalol. Labetalol 100 mg was ordered stat by [facility] [employer] and we're asked to consult. She was given a dose of nifedipine and responded well, she required another dose 8 hours later and was started on nifedipine xL on the morning of 11/08/2019. Her BP was monitored closely on 11/07 and systolic stayed less than 160. She was determined stable for discharge. Patient seen and examined at bedside at 0915. No chest pain, no shortness of breath, no headache, no nausea, no numbness, no tingling, Edema is better. Objective - Vital Signs Vital signs: Vital Signs Temp 98.4 F 11/07/19 08:00 Pulse 77 11/07/19 08:00 Resp 16 11/07/19 08:00 BP 139/88 11/07/19 09:00 Pulse Ox 99 11/07/19 08:00 Intake & Output 11/06/19 11/07/19 11/07/19 18:59 06:59 18:59 Output Total 1000 Balance -1000 Weight 76.294 kg Output: Urine 1000 Other: # Voids 1 - Exam General: Non toxic , no distress, appears at stated age Derm: warm, dry Head: atraumatic, normocephalic, symmetric Eyes: EOMI, no lid lag, anicteric sclera Mouth: no lip lesion, mucus membranes moist Cardiovascular: S1S2 reg, no murmur, positive posterior tibial pulse bilateral, Lungs: CTA bilateral, no rhonchi, no rales , no accessory muscle use Abdominal: soft, nontender to palpation, no guarding, no appreciable organomegaly Ext: no gross muscle atrophy, 1+ edema, no contractures Neuro: CN II-XI grossly intact, no focal neuro deficits Psych: Alert, oriented, appropriate affect - Labs CBC & Chem 7: 11/07/19 05:02 11/07/19 05:02 Labs: Abnormal Lab Results - Last 24 Hours (Table) 11/07/19 11/07/19 Range/Units 05:02 05:02 RBC 3.25 L (3.80-5.40) m/uL Hgb 9.4 L (11.4-16.0) gm/dL Hct 29.6 L (34.0-46.0) % Sodium 134 L (137-145) mmol/L Chloride 108 H (98-107) mmol/L Carbon Dioxide 21 L (22-30) mmol/L Glucose 70 L (74-99) mg/dL Calcium 8.3 L (8.4-10.2) mg/dL Total Protein 5.3 L (6.3-8.2) g/dL Albumin 2.7 L (3.5-5.0) g/dL Assessment and Plan Assessment: Preeclampsia with possible severe features as suggested by headache - Continue with labetalol 300 mg BID and added nifedipine xL 30 mg - d/w patient the importance of following with her PC Dr. Christian out of [place] - D/w her that if she developes VALLE, blurred vision, Chest pain, or neurologic changes seek care immediately. - d/w patient need to follow BP as it can recover or worsen quickly. At risk for future HTN and Cardiovascular disease Anemia of - anticipated monitor Medically stable for discharge.
== END 2019-11-07 17:31 | disposition home or self-care (01) | DRG 807 ==
LOC: FBPOP 16:39 → 4FBP 17:23
PROVIDERS: ADMIT Obstetrics & Gynecology; ATTEND Obstetrics & Gynecology
PROC: 10E0XZZ Delivery of Products of Conception, External Approach (ICD-10-PCS; principal; 2019-11-04)
DX: O14.14 Severe pre-eclampsia complicating childbirth (principal); Z37.0 Single live birth; O99.02 Anemia complicating childbirth; D64.9 Anemia, unspecified; O99.334 Smoking (tobacco) complicating childbirth; F17.210 Nicotine dependence, cigarettes, uncomplicated; O69.81X0 Labor and delivery complicated by cord around neck, without compression, not applicable or unspecified; M54.9 Dorsalgia, unspecified; Z88.0 Allergy status to penicillin; Z88.2 Allergy status to sulfonamides; R51 Headache; Z3A.36 36 weeks gestation of pregnancy; Z82.49 Family history of ischemic heart disease and other diseases of the circulatory system; Z82.5 Family history of asthma and other chronic lower respiratory diseases; Z87.442 Personal history of urinary calculi
CPT/HCPCS: 59025; 80053; 80306; 81001; 82565; 82570; 83615; 83735; 84156; 84450; 84460; 84520; 84550; 85025; 85027; 85384; 85610; 85730; 86850; 86900; 86901; 88307; 99215